=== PATIENT | female | born 1995 | race Caucasian/White ===

== ENCOUNTER 2016-09-06 22:36 | Inpatient (IN) | payer BC, MEDICAID ==
[~2016-09-06] VITALS: Ht 154.9 cm; Wt 72.3 kg
[2016-09-06 22:36] VITALS: BP 153/93; PULSE 116; RESP 20; TEMP 99; O2SAT 96
--- NOTE | 2016-09-06 23:08 | NUR ---
Patient and family given N95 masks. Isolation/airborne precautions in place. made aware.
--- NOTE | 2016-09-06 23:08 | NUR ---
Placed in room 08 . Placed on equipment monitor phototypesetting, blood pressure machine and pulse oximeter. To gown for exam. Side rails up. Report given to WALI Liang.
--- NOTE | 2016-09-06 23:25 | NUR ---
MD Zuñiga examining pt at bedside
--- NOTE | 2016-09-06 23:50 | NUR ---
Pt brought to ED by family members for hematypsis since yesterday, pt stated she has night sweat since Wednesday, with chill , fever, couhging, vomitting/diarrhea. Pt A&Ox4, denies chestpain, no sign of respirtory distress noted. Skin intact. Will continue to monitor
--- NOTE | 2016-09-06 23:50 | NUR ---
Note pravinone in EDM - 09/07/16 at 0403 by [email or web address] Pt brought to ED by family members for hematypsis since yesterday, pt stated she has night sweat since Wednesday, with chill. Pt A&Ox4, denies chestpain, no sign of resp. distress noted, denies N/V/D. Skin intact. Will continue to monitor
[2016-09-07 00:27] LABS: HCG,QUAL RESULT NEGATIVE (NEGATIVE)
[2016-09-07 00:42] LABS: BILIRUBIN,URINE NEGATIVE (NEGATIVE); BLOOD, URINE 1+ (NEGATIVE); CLARITY/URINE SL HAZY (CLEAR); COLOR,URINE YELLOW (YELLOW); GLUCOSE,URINE NEGATIVE (NEGATIVE); KETONES,URINE 3+ (NEGATIVE); LEUKOCYTE ESTERASE ,URINE NEGATIVE (NEGATIVE); NITRITE, URINE NEGATIVE (NEGATIVE); PROTEIN URINE TRACE (NEGATIVE)
[2016-09-07 00:56] LABS: BACTERIA,URINE MODERATE /HPF (None Seen)
[2016-09-07 00:57] LABS: MUCUS,URINE 1+ /LPF (None Seen)
[2016-09-07 01:06] LABS: BASOPHILS % (AUTO) 0.2 % (0.0-2.0); EOSINOPHILS % (AUTO) 0.3 % (0.0-4.0); HEMATOCRIT 32.2 % (36-48); HEMOGLOBIN 11.1 g/dL (12.0-16.0); LYMPHOCYTES # (AUTO) 1.6 K/uL (1.0-5.5); LYMPHOCYTES % (AUTO) 17.9 % (20.5-51.5); MEAN CORPUSCULAR HEMOGLOBIN 28 pg (27-31); MEAN CORPUSCULAR HGB CONC 35 % (32-36); MEAN CORPUSCULAR VOLUME 82 fL (79.0-98.0); MONOCYTES % (AUTO) 11.4 % (1.7-9.3); NEUTROPHILS # (AUTO) 6.4 K/uL (1.8-7.7); NEUTROPHILS % (AUTO) 70.2 % (40.0-70.0); PLATELET COUNT (AUTO) 202 K/uL (130-430); RED BLOOD CELL COUNT(AUTO) 3.92 MIL/uL (4.2-6.2); RED CELL DISTRIBUTION WIDTH 12.4 % (9.0-15.0)
--- NOTE | 2016-09-07 01:20 | NUR ---
Randi hodges in ED - 09/07/[address] at [email or web address] angiogram consent obtained, pt verbalized understanding. Pt signed consent
[2016-09-07 01:23] LABS: ANION GAP 13 (5-15); CALCIUM 8.9 mg/dL (8.4-11.0); CHLORIDE 101 mmol/L (98-107); CREATININE 0.65 mg/dL (0.55-1.30); GLUCOSE 100 mg/dL (70-99); SODIUM SERUM 139 mmol/L (136-145); UREA NITROGEN, BLOOD 6 mg/dL (8-21)
[2016-09-07 01:27] LABS: GFR AFRICAN AMERICAN 149 mL/min (>90)
[2016-09-07 01:28] LABS: POTASSIUM 2.7 mmol/L (3.5-5.1)
[2016-09-07 01:36] LABS: ALANINE AMINOTRANSFERASE 58 U/L (12-78); ALBUMIN 3.4 g/dL (3.4-4.8); ASPARTATE AMINOTRANSFERASE 39 U/L (10-37); TOTAL BILIRUBIN 0.5 mg/dL (0.0-1.0); TOTAL PROTEIN, SERUM 7.3 g/dL (6.4-8.3)
[2016-09-07] MEDS ORDERED: POTASSIUM CHLORIDE 20 MEQ TAB.PRT.SR PO ONE ×2 (01:45→12:45)
[2016-09-07] MEDS ORDERED: KCL 20 mEq in 100 mL (PREMIX) 100 ML IV ONE (01:45)
--- NOTE | 2016-09-07 02:20 | NUR ---
CT angiogram consent obtained, pt verbalized understanding. Pt signed consent
[2016-09-07] MEDS ORDERED: IOHEXOL 100 ML IV ONE (02:32)
--- NOTE | 2016-09-07 02:47 | NUR ---
Patient to CT with tech via wheelchair.
--- NOTE | 2016-09-07 04:01 | NUR ---
Pt in bed, family member at bedside. No sign of distress
--- NOTE | 2016-09-07 04:08 | NUR ---
Pt denies taking any medication at home
[2016-09-07] MEDS ORDERED: PIPERACILLIN/TAZO 4.5 GM in NS 100 ML IV ONE (05:00)
[2016-09-07] MEDS ORDERED: AZITHROMYCIN 500 MG in NS 250 ML IV ONE (05:00)
--- NOTE | 2016-09-07 05:12 | NUR ---
PT WAS ABOUT TO BE TRANSFERED, BUT SHE COUGHED UP BLOOD. CARE WAS GIVEN. TRANSFER WILL BE DELAYED. MD PAZ
[2016-09-07] MEDS ORDERED: ONDANSETRON HCL 4 MG/2 ML VIAL ONE (05:15)
[2016-09-07] MEDS ORDERED: LORazepam 2 MG/ML VIAL IM ONE ×2 (05:15)
[2016-09-07] MEDS ORDERED: ONDANSETRON HCL 4 MG/2 ML VIAL IVP ONE (05:15)
[2016-09-07] MEDS ORDERED: IPRATROPIUM/ALBUTEROL SULFATE 3 ML AMPUL.NEB INH ONE (05:15)
--- NOTE | 2016-09-07 05:15 | NUR ---
MD Zuñiga at bedside evaluating pt
--- NOTE | 2016-09-07 05:25 | NUR ---
hemotypsis and epitaxis stopped. Pt is stable. aware. Will be transferred to [facility]
--- NOTE | 2016-09-07 05:27 | NUR ---
ADMISSION NOTE Received patient from ER via kendra, received report from Jere KEYES. Patient admitted with diagnosis of pneumonia. Patient oriented to hospital routine, call light, toileting and safety-patient verbalized understanding.
--- NOTE | 2016-09-07 05:30 | NUR ---
Patient will be admitted to care of . Admitted to telemetry unit. Will go to room 115. Belongings list completed. Summary report printed. Report will be given at bedside. Transfer to 115 via ACLS protocol. 2 Licensed nurse present. IV present no signs or symptoms of infiltration.
[2016-09-07 05:33] VITALS: BP 125/57; PULSE 114; TEMP 99.2; O2SAT 95
[2016-09-07 05:56] LABS: PROTHROMBIN TIME 10.8 SECS (9.5-12.5)
[2016-09-07] MEDS ORDERED: PIPERACILLIN/TAZOBACTAM 4.5 GM/VIAL (ZOSYN) IV ONE (06:02)
[2016-09-07] MEDS ORDERED: AZITHROMYCIN 500 MG/VIAL (ZITHROMAX) IV ONE (06:03)
--- NOTE | 2016-09-07 06:58 | NUR ---
FINAL NOTES PT IS RESTING COMFORTABLY @ THIS TIME. NO S/SS OF DISTRESS NOTED. V/S ARE WNL . ALL NEEDS MET AND ANTICIPATED BY NOC NURSES. BED IN LOW POSITION WITH SIDE RAILS UP X2. CALL LIGHT WITHIN REACH. ENDORSED.
[2016-09-07 08:00] VITALS: BP 118/65; PULSE 89; RESP 18; TEMP 98.6; O2SAT 96
--- NOTE | 2016-09-07 08:00 | NUR ---
initial notes rec patient awake alert and eating her breakfast. with iv abx infusing well on the r ac. no infiltration noted. pt with non productive cough but no blood noted. resp easy and unlabored and no sob noted.bed in low position and side rails up and locked. call light within reached and knows when to call for help. will continue to monitor patient.
--- NOTE | 2016-09-07 10:00 | NUR ---
rounds mother came and looking for dr hinojosa. no acute distress. sleeps at intervals.
[2016-09-07 12:00] VITALS: BP 117/65; PULSE 82; RESP 16; TEMP 99.1; O2SAT 98
--- NOTE | 2016-09-07 12:32 | NUR ---
seen by dr hinojosa and wanted dr santiago to see patient. no acute distress noted.
--- NOTE | 2016-09-07 13:10 | NUR ---
CONSULT CONSULT CALLED FOR PNA SPOKE WITH OREN.
--- NOTE | 2016-09-07 14:00 | NUR ---
rounds sleeping at intervals. no sob noted.
[2016-09-07 15:33] VITALS: BP 122/75; PULSE 81; RESP 19; TEMP 98.2; O2SAT 96
--- NOTE | 2016-09-07 16:00 | NUR ---
rounds still waiting for dr hinojosa to call for cough med. no acute distress noted.
[2016-09-07] MEDS: PROMETHAZINE-DM 6.25 MG-15 MG/5 ML UDC PO PRN (17:38)
--- NOTE | 2016-09-07 18:42 | NUR ---
closing notes seen by dr mccormack at bedside and with orders. denies any pain/headache. coughing at intervals. no sob noted . bed in low position and side rails up and locked.
[2016-09-07 20:30] VITALS: BP 101/59; PULSE 79; RESP 18; TEMP 99; O2SAT 96
--- NOTE | 2016-09-07 20:30 | NUR ---
Initial note A/O x 3, no SOB, no chest pain, denied pain. Skin warm to touch, IV at R AC, patent. Patient had some cough with yellowish/whitish sputum. No fever, no headache, no bloody sputum. Clear lung sounds and active bowel sounds. Airborne precaution applied. Family at bedside. Call light within reach, will continue to monitor patient.
--- NOTE | 2016-09-07 22:20 | NUR ---
Rounds A/O x 3, no SOB, no chest pain, denied pain. IV at R AC, patent. Patient had some cough with yellowish/whitish sputum. No fever, no headache, no bloody sputum. Airborne precaution applied. Call light within reach, will continue to monitor patient.
[2016-09-08] VITALS: BP 108/58; PULSE 91; RESP 18; TEMP 98.3; O2SAT 96
--- NOTE | 2016-09-08 00:48 | NUR ---
Rounds Resting/sleeping in bed, no SOB, no chest pain, no grimacing. No cough noted at this time. Airborne precaution applied. Call light within reach, will continue to monitor patient.
--- NOTE | 2016-09-08 02:50 | NUR ---
Rounds Sleeping in bed, arousable, no SOB, no chest pain, no grimacing. No cough noted at this time. Airborne precaution applied. Call light within reach, will continue to monitor patient.
[2016-09-08 04:07] VITALS: BP 100/41; PULSE 77; RESP 18; TEMP 96.8; O2SAT 95
[2016-09-08] MEDS: AZITHROMYCIN 250 MG TABLET PO SCH (06:09)
--- NOTE | 2016-09-08 06:49 | NUR ---
Closing note Resting in bed, arousable, no SOB, no chest pain, no grimacing. Had some dry cough at this time. Airborne precaution applied. Call light within reach, will give report to incoming nurse.
[2016-09-08 06:52] LABS: CALCIUM 8.7 mg/dL (8.4-11.0); CREATININE 0.65 mg/dL (0.55-1.30); FREE T4 (FREE THYROXINE) 0.8 ng/dL (0.6-1.6); POTASSIUM 3.9 mmol/L (3.5-5.1); THYROID STIMULATING HORMONE 0.84 uIu/mL (0.34-4.82)
--- NOTE | 2016-09-08 06:52 | NUR ---
Call [phone] radiology dept Informed them about the cancellation of CT sinus for tonight (09/08/2016) as MD ordered.
[2016-09-08 06:59] LABS: BASOPHILS # (AUTO) 0.1 K/uL (0.0-0.2); BASOPHILS % (AUTO) 0.8 % (0.0-2.0); EOSINOPHILS # (AUTO) 0.2 K/uL (0.0-0.4); EOSINOPHILS % (AUTO) 3.3 % (0.0-4.0); HEMATOCRIT 31.8 % (36-48); HEMOGLOBIN 10.7 g/dL (12.0-16.0); LYMPHOCYTES # (AUTO) 2.1 K/uL (1.0-5.5); LYMPHOCYTES % (AUTO) 32.3 % (20.5-51.5); MEAN CORPUSCULAR HEMOGLOBIN 28 pg (27-31); MEAN CORPUSCULAR HGB CONC 34 % (32-36); MEAN CORPUSCULAR VOLUME 84 fL (79.0-98.0); MONOCYTES # (AUTO) 0.8 K/uL (0.0-1.0); MONOCYTES % (AUTO) 11.6 % (1.7-9.3); NEUTROPHILS # (AUTO) 3.3 K/uL (1.8-7.7); PLATELET COUNT (AUTO) 192 K/uL (130-430); RED BLOOD CELL COUNT(AUTO) 3.78 MIL/uL (4.2-6.2); RED CELL DISTRIBUTION WIDTH 12.9 % (9.0-15.0)
[2016-09-08 07:10] LABS: WHITE BLOOD COUNT (AUTO) 6.5 K/uL (4.5-11.0)
[2016-09-08 07:24] LABS: IRON (SERUM) 35 mcg/dL (37-145); TOTAL IRON BIND. CAPACITY 212 ug/dL (250-450)
--- NOTE | 2016-09-08 08:00 | NUR ---
Opening notes, A/O x 4, no SOB, no chest pain, denied pain. Skin warm to touch, IV at R AC, patent. Patient had some cough with brownish/ocasio. No fever, no headache, no bloody sputum. Airborne precaution applied. Call light within reach, Bed in low position. will continue to monitor patient.
[2016-09-08] MEDS: cefTRIAXone 1 GM in D5W 50 ML IV SCH (08:16)
[2016-09-08] MEDS: PROMETHAZINE-DM 6.25 MG-15 MG/5 ML UDC PO PRN ×2 (08:20→15:29)
--- NOTE | 2016-09-08 10:00 | NUR ---
notes, pt in bed, no c/o pain, no sob, no distress, resting comfortably in bed. Airborne isolation in place. callight in reach, bed in low position. will cont to monitor.
--- NOTE | 2016-09-08 12:00 | NUR ---
notes, patient in bed, resting comfortably. no pain, no sob. will cont to monitor.
[2016-09-08 12:23] VITALS: BP 110/77; PULSE 68; RESP 17; TEMP 97.8; O2SAT 96
--- NOTE | 2016-09-08 14:00 | NUR ---
notes, pt in bed, resting comfortably in bed.
--- NOTE | 2016-09-08 16:00 | NUR ---
rounding notes pt in bed, denies pain, no sob. no distress. resting comfortably in bed. call light in reach, bed in low position, will continue to monitor.
[2016-09-08 16:18] VITALS: BP 127/58; PULSE 93; RESP 18; TEMP 97.5; O2SAT 97
--- NOTE | 2016-09-08 18:00 | NUR ---
Closing notes, pt remain aao, no c/o pain, cough medications provided 2x as requested, patient now out of isolation. all medication this shift offered and taken.no untoward incident this shift. will endorse to night rn.
[2016-09-08 20:26] VITALS: BP 103/44; PULSE 82; RESP 20; TEMP 96.8; O2SAT 98
--- NOTE | 2016-09-08 20:30 | NUR ---
Initial note A/O x 3, no SOB, no chest pain, denied pain, had some cough with yellow sputum. Skin warm to touch, no skin breakdown. IV at R AC, patent, no s/s of infection or infiltration. Clear lungs sounds, diminished at L lower lobe. Active bowel sound. +2 radial and pedal pulses. Call light within reach, will continue to monitor patient.
--- NOTE | 2016-09-08 20:43 | NUR ---
Paged Dr. Morales regarding patient cough, awaiting call back Patient cough, but no Phenergan available.
--- NOTE | 2016-09-08 20:52 | NUR ---
Dr. Morales called back Kayceesin DM 10 ml PO Q4H prn for cough
--- NOTE | 2016-09-08 22:25 | NUR ---
Rounds A/O x 3, no SOB, no chest pain, denied pain, had some dry cough, Robitussin given earlier, cough decreased. Skin warm to touch, no skin breakdown. Call light within reach, will continue to monitor patient.
--- NOTE | 2016-09-09 00:02 | NUR ---
Rounds Sleeping in bed, arousable, no SOB, no chest pain, denied pain, no cough noted at this time. Skin warm to touch, no skin breakdown. Call light within reach, will continue to monitor patient.
[2016-09-09 00:03] VITALS: BP 106/61; PULSE 66; RESP 17; TEMP 97; O2SAT 100
--- NOTE | 2016-09-09 02:05 | NUR ---
Rounds Sleeping in bed, no SOB, no chest pain, no grimacing, no cough noted at this time. Call light within reach, bed at lowest poisition, will continue to monitor patient.
[2016-09-09 04:10] VITALS: BP 119/67; PULSE 68; RESP 16; TEMP 97.4; O2SAT 100
[2016-09-09] MEDS: AZITHROMYCIN 250 MG TABLET PO SCH (06:07)
--- NOTE | 2016-09-09 06:08 | NUR ---
Closing note Sleeping in bed, arousable, no SOB, no chest pain, denied pain, no cough noted at this time. Zithromax PO given. Call light within reach, will give report to incoming nurse.
[2016-09-09 07:53] VITALS: BP 107/67; PULSE 82; RESP 16; TEMP 97.3; O2SAT 98
--- NOTE | 2016-09-09 08:00 | NUR ---
OPENING NOTES, RECEIVED PATIENT IN BED, PATIENT IS ALERT AND ORIENTED 4X, DENIES PAIN , NO SOB, NO DISTRESS. BREATHING NORMAL AND EVEN, ON ROOM AIR. OFFERED COUGH MEDICATION, PATIENT REFUSED. IV SITE APPEARS NORMAL. CALL LIGHT IN REACH, BED IN LOW POSITON. INSTRUCTED PATIENT TO CALL FOR ASSISTANCE AND PAIN MEDICATIONS ANY TIME. WILL CONTINUE TO MONITOR.
[2016-09-09] MEDS: cefTRIAXone 1 GM in D5W 50 ML IV SCH (08:34)
[2016-09-09] MEDS ORDERED: IBUPROFEN 600 MG TABLET PO PRN (09:15)
--- NOTE | 2016-09-09 10:00 | NUR ---
ROUNDING NOTES PT IN BED, DENIES PAIN, NO SOB, RESTING COMFORTABLY IN BED, CALL LIGHT IN REACH, BED IN LOW POSITION.
[2016-09-09] MEDS ORDERED: DOXYCYCLINE HYCLATE 100 MG in D5W 100 ML IV SCH (11:00)
--- NOTE | 2016-09-09 12:00 | NUR ---
ROUNDING NOTES, PATIENT IN BED, RESTING COMFORTABLY, NO SS PAIN, NO SOB. CALL LIGHT IN REACH. BED IN LOW POSITION.
[2016-09-09 12:05] LABS: CALCIUM 9.6 mg/dL (8.4-11.0); CREATININE 0.75 mg/dL (0.55-1.30); POTASSIUM 3.7 mmol/L (3.5-5.1)
[2016-09-09 12:09] LABS: BASOPHILS % (AUTO) 0.4 % (0.0-2.0); EOSINOPHILS # (AUTO) 0.3 K/uL (0.0-0.4); EOSINOPHILS % (AUTO) 3.8 % (0.0-4.0); HEMATOCRIT 38.1 % (36-48); HEMOGLOBIN 12.6 g/dL (12.0-16.0); LYMPHOCYTES # (AUTO) 2.4 K/uL (1.0-5.5); LYMPHOCYTES % (AUTO) 34.4 % (20.5-51.5); MEAN CORPUSCULAR HEMOGLOBIN 27 pg (27-31); MEAN CORPUSCULAR HGB CONC 33 % (32-36); MEAN CORPUSCULAR VOLUME 83 fL (79.0-98.0); MONOCYTES # (AUTO) 0.5 K/uL (0.0-1.0); MONOCYTES % (AUTO) 7.9 % (1.7-9.3); NEUTROPHILS # (AUTO) 3.7 K/uL (1.8-7.7); NEUTROPHILS % (AUTO) 53.5 % (40.0-70.0); PLATELET COUNT (AUTO) 371 K/uL (130-430); RED BLOOD CELL COUNT(AUTO) 4.61 MIL/uL (4.2-6.2); WHITE BLOOD COUNT (AUTO) 6.9 K/uL (4.5-11.0)
[2016-09-09] MEDS ORDERED: LACT1POW8 MC (12:54)
[2016-09-09] MEDS ORDERED: DOXY-4 PO (12:57)
[2016-09-09] MEDS ORDERED: GUAI600T86 PO (12:58)
[2016-09-09 13:11] VITALS: BP 115/56; PULSE 80; RESP 16; TEMP 98; O2SAT 95
--- NOTE | 2016-09-09 14:00 | NUR ---
ROUNDING NOTES, PATIENT IN BED, RESTING COMFORTABLEY, NO SS PAIN, NO SOB. CALL LIGHT IN REACH. BED IN LOW POSITION.
[2016-09-09 14:34] VITALS: BP 115/76; PULSE 80; RESP 16; TEMP 98; O2SAT 95
--- NOTE | 2016-09-09 15:52 | NUR ---
D/C Patient Patient given medication reconciliation form and D/C instructions. Exit Care provided. Patient verbalized understanding. MD discussed with patient the results and treatment provided. Ambulatory with steady gait for discharge to home. Patient in stable condition, ID band removed. IV catheter removed, intact and dressing applied, no active bleeding. Rx of given. Patient educated on pain management. Patient given a list of the [facility] around the area so she can follow up with a Primary Doctor. Pt also instructed to go to her Pharmacy as the doctor electronically sent the prescription over there and in case she is not able to afford the medications she can call or go to the office of Dr Morales to get a written prescription so she can get if from other pharmacy for maybe a cheaper olvera. Discussed indications and side efffects of the medication. Patient verbalized understanding. All belongings sent with patient.
[2016-09-10 06:06] LABS: FOLATE (FOLIC ACID) 12.6 ng/mL (>3.0)
--- NOTE | 2016-09-10 12:25 | NUR ---
Discharge Follow Up Phone Call TELEPHONE TRIAGE NURSE phoned patient, . Patient stated she was feeling a little better. She filled her antibiotic and Mucinex prescriptions and is taking them as directed. She did not obtain the Lactobaillus Acidophilus as the pharmacy did not have it available. She plans to follow up with Dr Morales and will call to make an appointment. She is aware that follow up is important and that she will need a chest x-ray in three weeks. Patient plans to follow up on her [employer] application. Patient has no other questions or concerns.
== END 2016-09-09 15:40 | disposition home or self-care (01) | DRG 139 ==
LOC: SED 22:36 → STU 09-07 04:50 → SMU 09-07 20:20
PROVIDERS: ADMIT Internal Medicine; ATTEND Internal Medicine
DX: J18.9 Pneumonia, unspecified organism (principal); E87.6 Hypokalemia; D64.9 Anemia, unspecified; F12.90 Cannabis use, unspecified, uncomplicated; J32.9 Chronic sinusitis, unspecified; R04.0 Epistaxis
CPT/HCPCS: 36415; 70486-TC; 71010; 71275; 80048; 80053; 81000-TC; 81025; 82306; 82607; 82746; 83540-TC; 83550-TC; 83605; 84439; 84443-TC; 84484; 84703; 85025; 85044-TC; 85379; 85610-TC; 86403; 86480; 86710; 87040-TC; 87070-TC; 87086; 87205-TC; 87536; 96365; 96366; 96367; 96368; 96375; 99285; J0456; J0696; J1956; J2405; J2543; J3480; J3490; J7030; J7050; J7060; Q0144; Q9967

== ENCOUNTER 2018-01-07 12:53 | Emergency (ER) | payer MEDICAID ==
[~2018-01-07] VITALS: Ht 154.9 cm; Wt 71.2 kg
[~2018-01-07 12:53] MED LIST: DOXY100C PO; GUAI600T86 PO; LACT1POW8 MC
[2018-01-07 12:59] VITALS: BP_SYST 142
[2018-01-07 15:56] VITALS: BP_SYST 146
== END 2018-01-07 16:01 | disposition home or self-care (01) ==
LOC: SED 12:53
DX: S32.2XXA Fracture of coccyx, initial encounter for closed fracture (principal); R03.0 Elevated blood-pressure reading, without diagnosis of hypertension; Z79.899 Other long term (current) drug therapy; W01.0XXA Fall on same level from slipping, tripping and stumbling without subsequent striking against object, initial encounter; Y93.89 Activity, other specified; Y92.89 Other specified places as the place of occurrence of the external cause; Y99.8 Other external cause status
CPT/HCPCS: 72220-TC; 81025; 99284

== ENCOUNTER 2023-01-20 11:35 | Emergency (ER) | payer MEDICAID ==
[~2023-01-20] VITALS: Ht 154.9 cm; Wt 72.6 kg
[2023-01-20 11:48] VITALS: BP_SYST 124; PULSE 84; RESP 16; TEMP 98; O2SAT 99
[2023-01-20] MEDS ORDERED: IBUP-1969 PO (12:39)
== END 2023-01-20 13:21 | disposition home or self-care (01) ==
LOC: SED 11:35
DX: S63.501A Unspecified sprain of right wrist, initial encounter (principal); F17.210 Nicotine dependence, cigarettes, uncomplicated; F12.90 Cannabis use, unspecified, uncomplicated; Z79.899 Other long term (current) drug therapy; W19.XXXA Unspecified fall, initial encounter; Y93.89 Activity, other specified; Y92.89 Other specified places as the place of occurrence of the external cause; Y99.8 Other external cause status
CPT/HCPCS: 99283